=== PATIENT | female | born 1935 | race Caucasian/White ===

== ENCOUNTER 2019-10-29 07:24 | Day surgery (SDC) | payer MEDICARE ==
[~2019-10-29] VITALS: Ht 152.4 cm; Wt 98.9 kg
[~2019-10-29 07:24] MED LIST: FURO20TA4 PO; METO-409 PO; OMEG-98 PO; OMEP20CA4 PO; SODIUM CHLORIDE 0.9% 1000ML 1,000 ML IV ONE; VIT1TABL66 PO; VIT1TABL85 PO
[2019-10-29 08:06] VITALS: BP 157/76
[2019-10-29] MEDS ORDERED: [UNRECOGNIZED DRUG - OTHER] PO (08:21)
[2019-10-29] MEDS ORDERED: PROPOFOL 10 MG/ML 20ML VIAL IV ONE (08:36)
[2019-10-29 08:45] VITALS: BP 133/70
[2019-10-29 08:50] VITALS: BP 125/62
[2019-10-29 08:55] VITALS: BP 118/85
[2019-10-29 09:00] VITALS: BP 114/79
== END 2019-10-29 09:15 | disposition home or self-care (01) ==
LOC: DAH 07:24 → ENDO 07:24
PROVIDERS: ATTEND Internal Medicine Gastroenterology
DX: K22.711 Barrett's esophagus with high grade dysplasia (principal); K44.9 Diaphragmatic hernia without obstruction or gangrene; I10 Essential (primary) hypertension; E78.00 Pure hypercholesterolemia, unspecified; M19.90 Unspecified osteoarthritis, unspecified site; K21.9 Gastro-esophageal reflux disease without esophagitis; I25.10 Atherosclerotic heart disease of native coronary artery without angina pectoris; Z88.0 Allergy status to penicillin; Z88.5 Allergy status to narcotic agent; Z72.89 Other problems related to lifestyle; Z85.01 Personal history of malignant neoplasm of esophagus; Z90.710 Acquired absence of both cervix and uterus; Z98.49 Cataract extraction status, unspecified eye; Z79.899 Other long term (current) drug therapy; Z98.890 Other specified postprocedural states; Z87.891 Personal history of nicotine dependence; Z82.49 Family history of ischemic heart disease and other diseases of the circulatory system
CPT/HCPCS: 43235; A4215; A4221; A4222; A4223; A4606; A4620; A4663; J2704; J7030